=== PATIENT | female | born 1950 | race American Indian/Alaskan Native ===

== ENCOUNTER 2017-08-14 06:51 | Day surgery (SDC) | payer MEDICARE ==
--- NOTE | 2017-08-12 11:44 | Anesthesia Consultation ---
Anesthesia Consult and Med Hx Date of service: 08/12/17 - Airway Anesthetic Teeth Evaluation: Good ROM Head & Neck: Adequate Mental/Hyoid Distance: Adequate Mallampati Class: Class II Intubation Access Assessment: Probably Good - Pulmonary Exam CTA: Yes - Cardiac Exam Cardiac Exam: RRR - Pre-Operative Health Status ASA Pre-Surgery Classification: ASA2 Proposed Anesthetic Plan: General - Pulmonary Hx Smoking: No Hx Asthma: No Hx Sleep Apnea: No - Cardiovascular System Hx Hypertension: Yes (since 2014) Hx Heart Attack/AMI: No - Central Nervous System Hx Seizures: No CVA: No Hx Back Pain: Yes Hx Psychiatric Problems: No - Endocrine Hx Renal Disease: No Hx Liver Disease: No Hx Insulin Dependent Diabetes: No - Hematic Hx Anemia: No Hx Sickle Cell Disease: No - Other Systems Hx Cancer: No Hx Obesity: Yes - Additional Comments Anesthesia Medical History Comments: NAC
[2017-08-12 12:29] LABS: Basophils % (Auto) 0.8 % (0.0-1.8); Eosinophils % (Auto) 0.7 % (0.0-4.3); Hematocrit 41.8 % (30.3-42.9); Hemoglobin 13.5 gm/dl (10.1-14.3); Mean Corpuscular HGB Conc 32 % (30-34); Mean Corpuscular Hemoglobin 32 pg (28-32); Mean Corpuscular Volume 98 fl (79-97); Red Blood Count 4.25 M/mm3 (3.65-5.03); Red Cell Distribution Width 13.3 % (13.2-15.2); White Blood Count 5.8 K/mm3 (4.5-11.0)
[2017-08-12 12:48] LABS: Platelet Count 198 K/mm3 (140-440)
[2017-08-12 12:54] LABS: Anion Gap 17 mmol/L; BUN/Creatinine Ratio 20; Blood Urea Nitrogen 12 mg/dL (7-17); Calcium 9.2 mg/dL (8.4-10.2); Carbon Dioxide 27 mmol/L (22-30); Chloride 98.2 mmol/L (98-107); Glucose 173 mg/dL (65-100); Potassium 3.8 mmol/L (3.6-5.0); Sodium 138 mmol/L (137-145)
--- NOTE | 2017-08-13 23:00 | History and Physical Report ---
History of Present Illness Date of examination: 07/30/17 Chief complaint: postmenopausal bleeding; endometrial polyp History of present illness: Pt is a 67 year old -[place] presents with postmenopausal bleeding and evidence of endometrial polyp on endometrial biopsy. Past History Past Medical History: hypertension Past Surgical History: EDI ARCHITECT/uterine surgery (tubal ligation ) Family/Genetic History: diabetes, hypertension Social history: no significant social history, single Medications and Allergies Allergies Allergy/AdvReac Type Severity Reaction Status Date / Time No Known Allergies Allergy Unverified 08/07/17 16:15 Home Medications Medication Instructions Recorded Confirmed Last Taken Type Losartan/Hydrochlorothiazide 1 each PO DAILY 08/07/17 08/07/17 Unknown History [Losartan-Hctz 50-12.5 mg Tab] amLODIPine [Norvasc] 10 mg PO DAILY 08/07/17 08/07/17 Unknown History Active Meds: Active Medications Famotidine (Pepcid) 20 mg PO PREOP NR Stop: 08/14/17 12:00 Cefazolin Sodium (Ancef/Sterile Water 2 Gm/20 Ml) 2 gm in 20 mls @ 80 mls/hr IV PREOP NR PRN Reason: Protocol Lactated Ringer's (Lactated Ringers) 1,000 mls @ 100 mls/hr IV DIRECT MANFRED Midazolam HCl (Versed) 2 mg IV PREOP NR Stop: 08/14/17 23:59 Review of Systems All systems: negative - Vital Signs Vital signs: Vital Signs Temp Pulse Resp BP 97.8 F 80 16 132/60 08/12/17 11:15 08/12/17 11:15 08/12/17 11:15 08/12/17 11:15 Temp Pulse Resp BP Pulse Ox 97.8 F 80 16 132/60 08/12/17 11:15 08/12/17 11:15 08/12/17 11:15 08/12/17 11:15 - Physical Exam Breasts: Positive: deferred Cardiovascular: Regular rate Lungs: Positive: Clear to auscultation Abdomen: Positive: soft (obese) Uterus: Positive: normal size Extremities: Positive: normal Results Result Diagrams: 08/12/17 11:30 08/12/17 11:30 All other labs normal. Assessment and Plan A: Hypertension Postmenopausal Bleeding Endometrial Polyp P: Dilation and curettage, hysteroscopy, possible Myosure endometrial sampling
[~2017-08-14 06:51] MED LIST: VERSED IV NR
[2017-08-14] MEDS ORDERED: LACTATED RINGERS 1,000 ML IV SCH ×2 (07:00→12:00)
[2017-08-14] MEDS ORDERED: PEPCID PO NR (07:00)
[2017-08-14] MEDS ORDERED: ANCEF/STERILE WATER 2 GM/20 ML 2 GM/20 ML SYRINGE IV NR (08:00)
[2017-08-14] MEDS ORDERED: SUBLIMAZE ONE (09:12)
[2017-08-14] MEDS ORDERED: DIPRIVAN 10 MG/ML IV ONE (09:12)
[2017-08-14] MEDS ORDERED: ePHEDrine SULFATE ONE ×2 (09:42→09:45)
[2017-08-14] MEDS ORDERED: NACL 0.9% IR ONE (10:01)
[2017-08-14] MEDS ORDERED: ROBINUL ONE (10:12)
[2017-08-14] MEDS ORDERED: ZOFRAN ONE (10:12)
[2017-08-14] MEDS ORDERED: LACTATED RINGERS 1,000 ML ONE (10:12)
[2017-08-14] MEDS ORDERED: XYLOCAINE MPF 2% ONE (10:12)
--- NOTE | 2017-08-14 10:38 | Operative Report ---
Operative Report Operative Report: Date of procedure: 08/14/2017 Preoperative diagnosis: #1 Postmenopausal bleeding #2 Endometrial polyp Postoperative diagnosis: Same Procedure: #1 Hysteroscopy #2 Endometrial polypectomy and sampling with Myosure Surgeon: Zandra Chou M.D. Anesthesia: Gen. anesthesia with LMA Findings: #1 Small anteverted uterus which sounded to 8 cm #2 Endometrial polyp noted extending from the fundus Estimated blood loss: 25 mL Deficit: 180 mL Drains: None Specimens: Endometrial polyp and curettings to pathology Disposition: Stable to PACU Indication for procedure: The Patient is a 67 year old -[place] who presents with postmenopausal bleeding and evidence of endometrial polyp on endometrial biopsy for further evaluation. Operation in detail: After the risks, benefits, alternatives, and complications with the patient she gave informed consent for the procedure. She subsequently taken to the operating room with her IV noted to be running well and placed in the dorsal supine position. Gen. anesthesia was then induced without difficulty. The patient was then placed in the dorsal lithotomy position and prepped and draped in the normal sterile fashion. A timeout was performed. The bladder was then drained with a rubber catheter. An open sided bivalve speculum was placed into the vagina for adequate visualization of the cervix. The anterior lip of the cervix was grabbed and grasped with single-tooth tenaculum. The uterus was then gently sounded to 8 cm. The cervix was then sequentially dilated to a #19 Morillo dilator. The hysteroscope was then placed into the uterine cavity with visualization of the endometrial cavity containing an endometrial polyp extending from the fundus. The Myosure device was used in a standard fashion to perform an endometrial polypectomy and obtain a sample of endometrium which were subsequently sent to pathology. At this time all instruments were removed from the endometrial cavity. The single-tooth tenaculum was removed from the cervix and the puncture sites were noted to be hemostatic. At this time all instruments were removed from the vagina and the procedure was ended. The patient was replaced into the dorsal supine position and extubated without difficulty. She was subsequently taken to the PACU in stable condition. All instrument and lap counts were correct 2.
--- NOTE | 2017-08-14 10:43 | Short Stay Summary ---
Short Stay Documentation Date of service: 08/14/17 - History H&P: dictated Social history: no significant social history, single - Allergies and Medications Current Medications: Allergies No Known Allergies Allergy (Unverified 08/07/17 16:15) Home Medications Medication Instructions Recorded Confirmed Last Taken Type Losartan/Hydrochlorothiazide 1 each PO DAILY 08/07/17 08/14/17 08/14/17 History [Losartan-Hctz 50-12.5 mg Tab] amLODIPine [Norvasc] 10 mg PO DAILY 08/07/17 08/14/17 08/14/17 History Active Medications Famotidine (Pepcid) 20 mg PO PREOP NR Stop: 08/14/17 12:00 Last Admin: 08/14/17 08:00 Dose: 20 mg Cefazolin Sodium (Ancef/Sterile Water 2 Gm/20 Ml) 2 gm in 20 mls @ 80 mls/hr IV PREOP NR PRN Reason: Protocol Stop: 08/14/17 23:59 Lactated Ringer's (Lactated Ringers) 1,000 mls @ 100 mls/hr IV DIRECT MANFRED Last Admin: 08/14/17 07:45 Dose: 100 mls/hr Midazolam HCl (Versed) 2 mg IV PREOP NR Stop: 08/14/17 23:59 Last Admin: 08/14/17 08:36 Dose: 2 mg - Physical exam Breasts: deferred - Brief post op/procedure progress note Date of procedure: 08/14/17 Pre-op diagnosis: #1 Postmenopausal bleeding #2 Endometrial polyp Post-op diagnosis: same Procedure: #1 Hysteroscopy #2 Endometrial polypectomy and sampling with Myosure Anesthesia: GETA Findings: #1 Small anteverted uterus which sounded to 8 cm #2 Endometrial polyp noted extending from the fundus Surgeon: KIRT ZAFAR Estimated blood loss: minimal Pathology: list (endometrial polyp and curettings) Specimen disposition: to lab Condition: stable - Hospital course Hospital course: The patient underwent hysteroscopy and endometrial polypectomy and sampling with Myosure which she tolerated well. She was observed in the PACU and she met discharge criteria. - Disposition Condition at discharge: Good Disposition: DC- TO HOME OR SELFCARE - Discharge Diagnoses (1) Postmenopausal bleeding Status: Acute (2) Endometrial polyp Status: Acute (3) Obesity Status: Acute Qualifiers: Obesity type: unspecified obesity type Obesity classification: unspecified obesity classification Serious obesity comorbidity presence: unspecified whether serious comorbidity present Qualified Code(s): E66.9 - Obesity, unspecified (4) Hypertension Status: Acute Short Stay Discharge Plan Activity: other (Nothing in vagina x 4 wks ) Weight Bearing Status: Full Weight Bearing Diet: regular Additional Instructions: TORADOL GIVEN AT 1048AM. YOU CAN TAKE MOTRIN AT 450PM NEEDED FOR PAIN. NOTHING IN VAGINA FOR [address] KIRT ZAFAR OFFICE FOR RETURN APPOINTMENT AND FOR ANY QUESTIONS OR CONCERNS Follow up with: KETAN KRISHNA MD [Primary Care Provider] - 7 Days KIRT ZAFAR MD [Staff Physician] - 08/28/17 (post op appt. -please call to make appt ) Forms: Outpatient Surgery DC Inst. Prescriptions: Ibuprofen [Motrin] 600 mg PO Q6H PRN #30 tablet PRN Reason: Pain oxyCODONE /ACETAMINOPHEN [Percocet 5/325] 1 tab PO Q6HR PRN #30 tablet PRN Reason: Pain
--- NOTE | 2017-08-14 10:53 | Post Anesthesia Evaluation ---
- Post Anesthesia Evaluation Patient Participated: Yes Airway Patent: Yes Stable Respiratory Function: Yes Nausea/Vomiting: No Temp > 96.8F: Yes Pain Manageable: Yes Adequeate Hydration: Yes Anesthesia Complications: No
[2017-08-14] MEDS ORDERED: TORADOL IV PRN (11:00)
[2017-08-14] MEDS ORDERED: PERCOCET 5/325 PO ONE (12:00)
[2017-08-14 12:21] VITALS: BP 136/72
== END 2017-08-14 12:15 | disposition home or self-care (01) ==
LOC: OR 06:51
PROVIDERS: ATTEND Obstetrics & Gynecology
DX: N84.0 Polyp of corpus uteri (principal); N95.0 Postmenopausal bleeding; I10 Essential (primary) hypertension; E66.9 Obesity, unspecified; Z68.34 Body mass index [BMI] 34.0-34.9, adult; Z79.899 Other long term (current) drug therapy; Z98.51 Tubal ligation status; Z98.49 Cataract extraction status, unspecified eye
CPT/HCPCS: 36415; 58558; 80048; 82962; 85025; 88305; A4217; C1782; J0690; J1885; J2250; J2405; J2704; J3010; J7120